=== PATIENT | female | born 1930 | race Caucasian/White ===

== ENCOUNTER 2018-08-25 18:23 | Emergency (ER) | payer MEDICARE, BC ==
[~2018-08-25] VITALS: Ht 154.9 cm; Wt 82.1 kg
[~2018-08-25 18:23] MED LIST: ALBU2.5V5 NEB; ASCO-78 PO; ASPI-630 PO; ATOR20TA PO; CALC500T31 PO; CARV12.5 PO; CETI10TA16 PO; DIPH25CA58 PO; DONE10TA7 PO; DOXY100C14 PO; FLUT16SP NS; FURO40TA4 PO; HYDR-3164 PO; IPRA3AMP29 IH; LIDO700A4 TP; LORA0.5T96 PO; LORA10TA3 PO; LOSA-73 PO; MAGN400T22 PO; METO25TA4 PO; MULT-246 PO; OMEP40CA5 PO; OXYC5TAB4 PO; POTA10TA12 PO; RIVA15TA PO; SENN-82 PO; SERT100T8 PO; SIMV40TA3 PO; TELM1TAB PO; TRIA15CR2 TP; WARF2TAB96 PO; WARF4TAB64 PO; ZINC220C4 PO
[2018-08-25] MEDS ORDERED: ACETAMINOPHEN 325 MG TABLET. PO ONE (18:45)
[2018-08-25 19:06] LABS: BILIRUBIN,URINE NEGATIVE (NEG); CLARITY,URINE CLEAR; COLOR,URINE YELLOW; NITRITE,URINE NEGATIVE (NEG); PROTEIN,URINE NEGATIVE (NEG-TRACE); UROBILINOGEN,URINE 0.2 mg/dL (0.2 mg/dL)
[2018-08-25 19:17] LABS: HYALINE CASTS, URINE MODERATE /HPF; SQUAMOUS EPITHELIAL CELL,UR FEW /LPF
[2018-08-25 19:18] LABS: BACTERIA,URINE 0 /HPF (0-FEW); RBC,URINE 0 /HPF (0-2); WBC,URINE 0 /HPF (0-4)
--- NOTE | 2018-08-25 19:58 | RAD ---
CT head and cervical spine without contrast History: fall, head injury Technique: Noncontrast CT imaging was performed of the head and cervical spine. Multiplanar reconstruction images are submitted. Exposure: One or more of the following individualized dose reduction techniques were utilized for this examination: 1. Automated exposure control 2. Adjustment of the mA and/or kV according to patient size 3. Use of iterative reconstruction technique. Head CT Comparison: August 15, 2014 Findings: There is large right frontal scalp hematoma. No acute extra-axial or parenchymal hemorrhage is identified. There is no significant intra-axial mass effect, midline shift, or extra-axial fluid collection. The haynes-white differentiation of the major vascular territories is preserved. Ventricular size is proportionate to the sulcal spaces. There is moderate generalized supratentorial atrophy. The mastoid air cells and the visualized paranasal sinuses are aerated. There is no significant focal calvarial abnormality. There is atherosclerotic calcification bilateral carotid siphons and intradural vertebral arteries. Impression: 1. No acute intracranial abnormality is identified. There is moderate supratentorial atrophy. There is large right frontal scalp hematoma. Cervical spine CT Comparison: None Findings: No acute cervical spine fracture is identified. Vertebral body stature is maintained. There is mild grade 1 anterior spondylolisthesis C4-5 as seen previously. There is mild degenerative disc disease at C4-5 and C5-6. There is multilevel facet degenerative change. There is some fusion of the right C3-4 and C4-5 facet articulations. There is uncovertebral degenerative change. There is severe narrowing of the right C3-C4 and C5-6 neural foramina, moderate to severe narrowing on the right at C4-C5. There is mild to moderate narrowing of the left C5-6 neural foramen. There is fairly severe right and moderate left C6-7 neural foramina compromise. Atlanto-axial distance is within normal limits. There is appropriate alignment of lateral masses of C1 relative to C2. Occipital condylar-C1 relationship is maintained. There is atherosclerotic calcification of the carotid arteries in the neck bilaterally. There is hypodense lesion of the left thyroid gland estimated about 2.2 cm probably unchanged. Impression: 1. No acute cervical spine fracture is identified. 2. There is multilevel cervical neural foramina compromise due to facet and uncovertebral degenerative change. 3. Hypodense lesion left thyroid gland is probably unchanged. Electronically signed by: Tanmay Resendez MD (08/25/2018 7:55 PM) [facility]
[2018-08-25 21:00] VITALS: BP 152/78
--- NOTE | 2018-08-25 21:04 | PHYS DOC ---
Past Medical History Past Medical History: A-Fib, GERD, High Cholesterol, Heart Disease, Hypertension Additional Past Medical Histor: Alzheimer's, Tongue Cancer Past Surgical History: Angioplasty, Cholecystectomy, Hip Replacement, Hysterectomy, Knee Replacement, Pacemaker Additional Past Surgical Histo: Tongue Alcohol Use: None Drug Use: None Adult General Chief Complaint Chief Complaint: MECHANICAL FALL HPI HPI Patient is a 88 year old female with history of A. fib on a baby aspirin, hypertension, high cholesterol, who presents today to be evaluated status post falling. Patient states she was ambulating with her walker, she states she tripped and fell. Patient denies any loss of consciousness. She is complaining of right forehead contusion. Patient denies any neck pain, mid or low back pain. Denies any hip pain. Review of Systems Review of Systems Constitutional: Denies fever or chills [] Eyes: Denies change in visual acuity, redness, or eye pain [] HENT: Denies nasal congestion or sore throat [] Respiratory: Denies cough or shortness of breath [] Cardiovascular: No additional information not addressed in HPI [] GI: Denies abdominal pain, nausea, vomiting, bloody stools or diarrhea [] : Denies dysuria or hematuria [] Musculoskeletal: Denies back pain or joint pain [] Integument: Denies rash or skin lesions [] Neurologic: Reports right forehead contusion, denies focal weakness or sensory changes [] All other systems were reviewed and found to be within normal limits, except as documented in this note. Current Medications Current Medications Current Medications Medications (Trade) Dose Ordered Sig/Vlad Start Time Stop Time Status Last Admin Dose Admin Acetaminophen (Tylenol) 650 mg 1X ONCE 08/25/18 18:45 08/25/18 18:46 DC 08/25/18 19:29 650 MG Allergies Allergies Allergies Coded Allergies Type Severity Reaction Last Updated Verified Penicillins Allergy Intermediate Hives 08/18/14 Yes Sulfa (Sulfonamide Antibiotics) Allergy Intermediate 08/18/14 No cephalexin Allergy Intermediate 08/18/14 No lorazepam Allergy Intermediate 08/18/14 No Physical Exam Physical Exam Constitutional: Well developed, well nourished, no acute distress, non-toxic appearance. [] HENT: Normocephalic, atraumatic, bilateral external ears normal, oropharynx moist, no oral exudates, nose normal. [] Eyes: PERRLA, EOMI, conjunctiva normal, no discharge. [] Neck: Normal range of motion, no tenderness, supple, no stridor. [] Cardiovascular:Heart rate regular rhythm, no murmur [] Lungs & Thorax: Bilateral breath sounds clear to auscultation [] Abdomen: Bowel sounds normal, soft, no tenderness, no masses, no pulsatile masses. [] Skin: Warm, dry, no erythema, no rash. [] Back: No tenderness, no CVA tenderness. [] Extremities: No tenderness, no cyanosis, no clubbing, ROM intact, no edema. [] Neurologic: Alert and oriented X 3, normal motor function, normal sensory function, no focal deficits noted. Right forehead with a moderately sized contusion. Psychologic: Affect normal, judgement normal, mood normal. [] Current Patient Data Vital Signs Vital Signs Date Time Temp Pulse Resp B/P (MAP) Pulse Ox O2 Delivery O2 Flow Rate FiO2 08/25/18 18:57 98.6 80 16 128/55 (79) 93 Room Air 98.6 Lab Values Laboratory Tests Test 08/25/18 18:53 Urine Collection Type Unknown Urine Color Yellow Urine Clarity Clear Urine pH 6.0 Urine Specific [place] 1.015 Urine Protein Negative mg/dL (NEG-TRACE) Urine Glucose (UA) Negative mg/dL (NEG) Urine Ketones (Stick) Negative mg/dL (NEG) Urine Blood Negative (NEG) Urine Nitrite Negative (NEG) Urine Bilirubin Negative (NEG) Urine Urobilinogen Dipstick 0.2 mg/dL (0.2 mg/dL) Urine Leukocyte Esterase Negative (NEG) Urine RBC 0 /HPF (0-2) Urine WBC 0 /HPF (0-4) Urine Squamous Epithelial Cells Few /LPF Urine Bacteria 0 /HPF (0-FEW) Urine Hyaline Casts Moderate /HPF Urine Mucus Slight /LPF EKG EKG [] Radiology/Procedures Radiology/Procedures []PROCEDURE: CT HEAD AND CERVICAL SPINE WO CT head and cervical spine without contrast History: fall, head injury Technique: Noncontrast CT imaging was performed of the head and cervical spine. Multiplanar reconstruction images are submitted. Exposure: One or more of the following individualized dose reduction techniques were utilized for this examination: 1. Automated exposure control 2. Adjustment of the mA and/or kV according to patient size 3. Use of iterative reconstruction technique. Head CT Comparison: August 15, 2014 Findings: There is large right frontal scalp hematoma. No acute extra-axial or parenchymal hemorrhage is identified. There is no significant intra-axial mass effect, midline shift, or extra-axial fluid collection. The haynes-white differentiation of the major vascular territories is preserved. Ventricular size is proportionate to the sulcal spaces. There is moderate generalized supratentorial atrophy. The mastoid air cells and the visualized paranasal sinuses are aerated. There is no significant focal calvarial abnormality. There is atherosclerotic calcification bilateral carotid siphons and intradural vertebral arteries. Impression: 1. No acute intracranial abnormality is identified. There is moderate supratentorial atrophy. There is large right frontal scalp hematoma. Cervical spine CT Comparison: None Findings: No acute cervical spine fracture is identified. Vertebral body stature is maintained. There is mild grade 1 anterior spondylolisthesis C4-5 as seen previously. There is mild degenerative disc disease at C4-5 and C5-6. There is multilevel facet degenerative change. There is some fusion of the right C3-4 and C4-5 facet articulations. There is uncovertebral degenerative change. There is severe narrowing of the right C3-C4 and C5-6 neural foramina, moderate to severe narrowing on the right at C4-C5. There is mild to moderate narrowing of the left C5-6 neural foramen. There is fairly severe right and moderate left C6-7 neural foramina compromise. Atlanto-axial distance is within normal limits. There is appropriate alignment of lateral masses of C1 relative to C2. Occipital condylar-C1 relationship is maintained. There is atherosclerotic calcification of the carotid arteries in the neck bilaterally. There is hypodense lesion of the left thyroid gland estimated about 2.2 cm probably unchanged. Impression: 1. No acute cervical spine fracture is identified. 2. There is multilevel cervical neural foramina compromise due to facet and uncovertebral degenerative change. 3. Hypodense lesion left thyroid gland is probably unchanged. Electronically signed by: Wyatt Robles MD (08/25/2018 7:55 PM) [facility] DICTATED and SIGNED BY: WYATT ROBLES MD DATE: 08/25/181954 Course & Med Decision Making Course & Med Decision Making Pertinent Labs and Imaging studies reviewed. (See chart for details) This is a 88-year-old female patient presenting to the ED today to be evaluated status post falling, patient has right forehead contusion, no loss of consciousness. She is on a baby aspirin. CT of the head is negative for any acute findings, CT of the cervical spine is also negative for any acute findings.. Urine analysis is negative for any acute findings. Noted for scalp hematoma on the right forehead. Patient has history of Alzheimer's but has been alert and oriented in the ED following directions very well. She resides at home with her daughter who is willing to take her home. She is discharged to home. Ice elevation recommended to the affected area. Tylenol for pain. Follow- up with PCP next week. Provided family return precautions. Dragon Disclaimer Dragon Disclaimer This electronic medical record was generated, in whole or in part, using a voice recognition dictation system. Departure Departure Impression: Primary Impression: Fall from standing Additional Impression: Hematoma of scalp Disposition: HOME, SELF-CARE Condition: STABLE Referrals: LAURA PRYOR DO (PCP) Follow-up with your doctor in 1-2 weeks Patient Instructions: Fall Prevention and Home Safety, Hematoma, [id number] Additional Instructions: You were evaluated in the emergency room after falling, your CT of the head, cervical spine, are negative for any acute findings, your urine analysis is negative for infection. You have a forehead hematoma. Try to ice and elevate this affected area. You can take Tylenol for pain. Come back to the ED at any point you have uncontrolled pain, uncontrolled nausea vomiting, excessive sleepiness, confusion, or any other concerning symptoms. Follow up with your doctor next week Problem Qualifiers Primary Impression: Fall from standing Encounter type: initial encounter Qualified Codes: W19.XXXA - Unspecified fall, initial encounter Additional Impression: Hematoma of scalp Encounter type: initial encounter Qualified Codes: S00.03XA - Contusion of scalp, initial encounter JACINDA PARRY APRN Aug 25, 2018 21:04
== END 2018-08-25 21:39 | disposition home or self-care (01) ==
LOC: ER 18:23
DX: S00.83XA Contusion of other part of head, initial encounter (principal); S00.03XA Contusion of scalp, initial encounter; I48.91 Unspecified atrial fibrillation; K21.9 Gastro-esophageal reflux disease without esophagitis; E78.00 Pure hypercholesterolemia, unspecified; I11.9 Hypertensive heart disease without heart failure; G30.9 Alzheimer's disease, unspecified; F02.80 Dementia in other diseases classified elsewhere, unspecified severity, without behavioral disturbance, psychotic disturbance, mood disturbance, and anxiety; Z95.0 Presence of cardiac pacemaker; Z95.5 Presence of coronary angioplasty implant and graft; Z88.0 Allergy status to penicillin; Z88.1 Allergy status to other antibiotic agents; Z88.2 Allergy status to sulfonamides; Z88.8 Allergy status to other drugs, medicaments and biological substances; W01.0XXA Fall on same level from slipping, tripping and stumbling without subsequent striking against object, initial encounter; Y93.89 Activity, other specified; Y92.89 Other specified places as the place of occurrence of the external cause; Y99.8 Other external cause status
CPT/HCPCS: 70450; 72125; 81001; 99285-25

== ENCOUNTER 2019-11-06 12:43 | Emergency (ER) | payer MEDICARE, BC ==
[~2019-11-06 12:43] MED LIST changes: +AMIODARONE 150 MG/3 ML VIAL ONE; +CALCIUM CHLORIDE 1,000 MG/10 ML DISP.SYRIN ONE; +EPINEPHrine SYRINGE 1 MG/10 ML SYRINGE ONE; +OMEP40CA45 PO; -OMEP40CA5 PO; +SIMV40TA18 PO; -SIMV40TA3 PO
--- NOTE | 2019-11-06 13:09 | PHYS DOC ---
Past Medical History Past Medical History: A-Fib, GERD, High Cholesterol, Heart Disease, Hyper tension Additional Past Medical Histor: Alzheimer's, Tongue Cancer Past Surgical History: Angioplasty, Cholecystectomy, Hip Replacement, Hysterectomy, Knee Replacement, Pacemaker Additional Past Surgical Histo: Tongue Smoking Status: Never Smoker Alcohol Use: None Drug Use: None General Adult EDM: Chief Complaint: CPR/FULL ARREST HPI: HPI: Patient is a 89 year old female who presents in cardiac arrest. According to EMS patient was in the bathroom with her daughter trying to get dressed and suddenly collapsed. CPR was not started by family. Upon EMS arrival patient was found to be pulseless. CPR was started at that time. Patient was intubated. Family reports that she has been having headaches and shortness of breath for the last several days. Review of Systems: Review of Systems: Unable to obtain due to medical condition. Heart Score: Risk Factors: Risk Factors: DM, Current or recent (<one month) smoker, HTN, HLP, family history of CAD, obesity. Risk Scores: Score 0 - 3: 2.5% MACE over next 6 weeks - Discharge Home Score 4 - 6: 20.3% MACE over next 6 weeks - Admit for Clinical Observation Score 7 - 10: 72.7% MACE over next 6 weeks - Early Invasive Strategies Allergies: Allergies: Allergies Coded Allergies Type Severity Reaction Last Updated Verified Penicillins Allergy Intermediate Hives 08/18/14 Yes Sulfa (Sulfonamide Antibiotics) Allergy Intermediate 08/18/14 No cephalexin Allergy Intermediate 08/18/14 No lorazepam Allergy Intermediate 08/18/14 No Physical Exam: PE: General: unresponsive, toxic appearing HEENT: Normocephalic, atraumatic, no drainage from eyes Cardiology: No radial/femoral pulses bilaterally, no heart sounds Pulmonary: Bilateral breath sounds Abdomen: soft, nondistended Skin: intact, dry, cool Extremities: No deformities Neurology: nonresponsive, nonverbal, no movement Current Patient Data: Labs: Laboratory Tests Test 11/06/19 12:55 Glucose (Fingerstick) 414 mg/dL (70-99) H EKG: EKG: [] Radiology/Procedures: Radiology/Procedures: [] Course & Med Decision Making: Course & Med Decision Making Pertinent Labs and Imaging studies reviewed. (See chart for details) Patient is an 89-year-old female who presents to the emergency room in cardiac arrest. Patient was intubated in the field without difficulty. Upon arrival to the Emergency Room, CPR is in progress. She has bilateral breath sounds suggesting appropriate ETT placement. Patient received epinephrine x4, lidocaine x1, and a single shock for Vfib while en route to the Emergency Room. Upon arrival to the ED, patient is in Vtach without a pulse. She was given Amiodarone 300mg, Epinephrine x3, calcium in the ED. She was shocked twice for VTach. On final pulse check. patient was in asystole. Bedside ultrasound was done which did not show any cardiac activity. She did not have any signs of tamponade on bedside ultrasound. Despite extensive efforts of EMS and the Emergency Departmen t, ROSC was not obtained. Time of was pronounced at 1258. At that time, patient was in asystole, did not have a femoral or carotid pulse, had no cardiac activity, was apneic, and had nonreactive pupils. Family and primary care physician was notified of . All questions were answered. Dragon Disclaimer: Dragon Disclaimer: This electronic medical record was generated, in whole or in part, using a voice recognition dictation system. Critical Care Note Total Time (mins): 35 Departure Departure Impression: Primary Impression: Cardiac arrest Additional Impression: Ventricular tachycardia Disposition: 20 (1258) Condition: Referrals: LAURA PRYOR DO (PCP) PREMA FAIRBANKS MD Nov 06, 2019 13:09
== END 2019-11-06 12:58 | disposition expired ==
LOC: ER 12:43
DX: I46.9 Cardiac arrest, cause unspecified (principal); I48.91 Unspecified atrial fibrillation; K21.9 Gastro-esophageal reflux disease without esophagitis; E78.00 Pure hypercholesterolemia, unspecified; I11.9 Hypertensive heart disease without heart failure; G30.9 Alzheimer's disease, unspecified; F02.80 Dementia in other diseases classified elsewhere, unspecified severity, without behavioral disturbance, psychotic disturbance, mood disturbance, and anxiety; Z95.0 Presence of cardiac pacemaker; Z95.5 Presence of coronary angioplasty implant and graft; Z88.0 Allergy status to penicillin; Z88.1 Allergy status to other antibiotic agents; Z88.2 Allergy status to sulfonamides; Z88.8 Allergy status to other drugs, medicaments and biological substances
CPT/HCPCS: 31500; 82962; 92950; 99285; J0171; J0282; J3490